=== PATIENT | male | born 1995 | race Caucasian/White ===

== ENCOUNTER 2017-03-13 01:44 | Emergency (ER) | payer OTHER ==
[2017-03-13 02:02] VITALS: RESP 16
--- NOTE | 2017-03-13 02:22 | EDPHY ---
H & P Stated Complaint: ETOH HPI/ROS: CHIEF COMPLAINT: Patient makes none HISTORY OF PRESENT ILLNESS: This is a 21-year-old male brought to the emergency room after his friends called for help because he was too intoxicated to stand up. No additional history available. REVIEW OF SYSTEMS: Patient unable to provide Source: EMS - Personal History Current Tetanus/Diphtheria Vaccine: Yes Current Tetanus Diphtheria and Acellular Pertussis (TDAP): Yes - Medical/Surgical History Hx Asthma: No Hx Chronic Respiratory Disease: No Hx Diabetes: No Hx Cardiac Disease: No Hx Renal Disease: No Hx Cirrhosis: No Hx Alcoholism: No Hx HIV/AIDS: No Hx Splenectomy or Spleen Trauma: No Other PMH: PMH: denies. psh: denies - Social History Smoking Status: Former smoker Additional Social History: He is single. He is employed in a restaurant. - Physical Exam Exam: General Appearance: Vital signs reviewed. Vomit on his clothing. Eyes: Pupils equal and round, no conjunctival injection, no discharge. Anicteric. ENT, Mouth: Mucous membranes are moist, no oropharyngeal erythema or edema. Neck: No lymphadenopathy, supple. Respiratory: Lungs are clear to auscultation; no wheezes, rales, or rhonchi. Cardiovascular: Regular rate and rhythm; no murmur, rub, or gallop. Gastrointestinal: Abdomen is soft and nontender, no masses or organomegaly, bowel sounds present. Skin: Warm and dry, no rashes on exposed skin, normal color. Back: No step-offs or deformities with palpation of T L-spine. Extremities: No lower extremity edema, no calf tenderness or swelling. Neurological: Opens his eyes to vigorous stimulation. No verbalization. Moving all four extremities spontaneously to vigorous stimulation Constitutional: Initial Vital Signs Temperature (C) 36.2 C 03/13/17 01:58 Heart Rate 68 03/13/17 01:58 Respiratory Rate 16 03/13/17 01:58 Blood Pressure 123/69 H 03/13/17 01:58 O2 Sat (%) 91 L 03/13/17 01:58 O2 Delivery Mode Room Air O2 (L/minute) 2 Allergies/Adverse Reactions: No Known Allergies Allergy (Unverified 03/13/17 01:58) Home Medications: Medication Instructions Recorded NK [No Known Home Meds] 08/27/16 Medical Decision Making ED Course/Re-evaluation: Patient was evaluated hourly while he was in the emergency department. At 5:45 a.m. he was ambulatory without assistance. [facility]. I have not found evidence of trauma. I do not suspect head injury resulting in his altered mental status. There is nothing to suggest infection. I believe that alcohol intoxication accounts for his presentation and ED course. - Data Points Medications Given: Discontinued Medications Sodium Chloride (Ns) 1,000 mls @ 0 mls/hr IV ONCE ONE PRN Reason: Wide Open Stop: 03/13/17 03:10 Last Admin: 03/13/17 02:30 Dose: 1,000 mls Ondansetron HCl (Zofran) 4 mg IVP EDNOW ONE Stop: 03/13/17 03:10 Last Admin: 03/13/17 03:13 Dose: 4 mg Departure - Departure Disposition: Home, Routine, Self-Care Clinical Impression: Polysubstance abuse Alcoholic intoxication Qualifiers: Complication of substance-induced condition: uncomplicated Qualified Code(s): F10.120 - Alcohol abuse with intoxication, uncomplicated Condition: Good Instructions: Polysubstance Abuse (ED) Referrals: Teresa Vazquez MD [Medical Doctor] - As per Instructions
[2017-03-13] MEDS ORDERED: ONDANSETRON 4 MG/2 ML VIAL IVP ONE (03:09)
[2017-03-13] MEDS ORDERED: NS 1,000 ML IV ONE (03:09)
[2017-03-13 07:20] VITALS: BP 118/62; PULSE 74; TEMP 98.2; O2SAT 95
== END 2017-03-13 07:58 | disposition home or self-care (01) ==
LOC: EDUNIT#
DX: F10.120 Alcohol abuse with intoxication, uncomplicated (principal); F19.10 Other psychoactive substance abuse, uncomplicated; Z87.891 Personal history of nicotine dependence
CPT/HCPCS: 96374; J2405